=== PATIENT | female | born 1995 | race Two or more races ===

== ENCOUNTER 2024-06-19 21:17 | Emergency (ER) | payer OTHER ==
[~2024-06-19] VITALS: Ht 157.5 cm; Wt 58.1 kg
[2024-06-19] MEDS ORDERED: PRENATAL + DHA1 EAC1 PO (21:28)
[2024-06-19] MEDS ORDERED: 0.9 % SODIUM CHLORIDE 500 ML IV ONE (23:15)
[2024-06-19 23:22] LABS: PH,URINE 5.5 (5.0-8.0); URINE APPEARANCE Clear; URINE BILIRRUBIN Negative (NEGATIVE); URINE BLOOD Large; URINE COLOR Yellow; URINE GLUCOSE Negative (NEGATIVE); URINE KETONE Negative (NEGATIVE); URINE LEUKOCYTE Negative; URINE NITRATE Negative; URINE PROTEIN Negative (NEGATIVE); URINE UROBILINOGEN 0.2 E.U./dl
[2024-06-19 23:22] LABS: HEMATOCRIT 38.6 % (36.0-45.00); HEMOGLOBIN 13.1 g/dL (12.0-15.00); MEAN CELL VOLUME 85.9 fL (80.00-100.00); MEAN CORPUSCULAR HEMOGLOBIN 29.1 pg (27.00-32.0); MEAN CORPUSCULAR HGB CONC 33.9 g/dl (32.0-36.0); PLATELET COUNT 322 K/uL (150-450); RED CELL DISTRIBUTION WIDTH 13.1 % (11.5-14.5)
[2024-06-19 23:26] LABS: URINE BACTERIA 121.1 uL (0.0-1933); URINE EPITHELIAL CELLS 6.9 uL (0.0-38.8); URINE RBC 16.2 uL (0.0-20.8); URINE WBC 7.7 uL (0.0-23.2)
[2024-06-19 23:32] LABS: URINE CAST 0.29 uL (0.0-1.40)
[2024-06-19 23:48] LABS: CALCIUM 9.5 mg/dL (8.5-10.1); CREATININE SERUM 0.91 mg/dL (0.55-1.02); GFR 73.61; POTASSIUM 3.45 mEq/L (3.5-5.1)
== END 2024-06-20 00:11 | disposition home or self-care (01) ==
LOC: ER 21:17
PROVIDERS: General Practice
DX: O20.8 Other hemorrhage in early pregnancy (principal); Z3A.01 Less than 8 weeks gestation of pregnancy